=== PATIENT | female | born 1995 | race Caucasian/White ===

== ENCOUNTER 2016-11-07 22:13 | Emergency (ER) | payer OTHER ==
[2016-11-07 22:21] VITALS: BP 124/80; PULSE 106; RESP 18; TEMP 99; O2SAT 99
--- NOTE | 2016-11-07 22:51 | EDPHY ---
H & P Stated Complaint: dx strep 11/05 & rx amoxicillin; IV abx 11/06; increasing pain Time Seen by Provider: 11/07/16 22:38 HPI/ROS: HPI The patient presents with sore throat for the last 3 days that is getting progressively worse. The pain is moderate in severity, constant, sore in nature , more on the right-hand side. She does not have any neck stiffness, changes in her voice, neck pain. She has fever for the last several days, as high as 102 F. She was seen 2 days ago and had a positive rapid strep test, was given amoxicillin. She was seen yesterday at a [facility] and she was given some sort of IV antibiotic. She has been on Augmentin for the last 1 day. She has a history of recurrent pharyngitis as a child. REVIEW OF SYSTEMS Constitutional: See HPI Eyes: No discharge. ENT: See HPI Cardiovascular: No chest pain, no palpitations. Respiratory: No cough, no shortness of breath. Gastrointestinal: No abdominal pain, no vomiting. Genitourinary: No hematuria. Musculoskeletal: No back pain. Skin: No rashes. Neurological: No headache. PMHx: Healthy PHYSICAL General Appearance: Alert, no distress Eyes: Pupils equal and round no pallor or injection ENT, Mouth: Mucous membranes moist, posterior pharynx is erythematous with edema of the right tonsil with exudate, the tonsillar pillar appears normal, the uvula is midline Respiratory: There are no retractions, lungs are clear to auscultation Cardiovascular: Regular rate and rhythm Neurological: A&O, moves all extremities Skin: Warm and dry, no rashes Musculoskeletal: Neck is supple non tender Extremities: symmetrical, full range of motion Psychiatric: Patient is oriented X 3, there is no agitation Source: Patient Exam Limitations: No limitations - Personal History LMP (Females 10-55): 8-14 Days Ago Current Tetanus/Diphtheria Vaccine: Yes Current Tetanus Diphtheria and Acellular Pertussis (TDAP): Yes - Medical/Surgical History Hx Asthma: Yes Hx Chronic Respiratory Disease: No Hx Diabetes: No Hx Cardiac Disease: No Hx Renal Disease: No Hx Cirrhosis: No Hx Alcoholism: No Hx HIV/AIDS: No Hx Splenectomy or Spleen Trauma: No Other PMH: exercise induced asthma - Social History Smoking Status: Never smoked Constitutional: Initial Vital Signs Temperature (C) 37.2 C 11/07/16 22:15 Heart Rate 106 H 11/07/16 22:15 Respiratory Rate 18 11/07/16 22:15 Blood Pressure 124/80 H 11/07/16 22:15 O2 Sat (%) 99 11/07/16 22:15 O2 Delivery Mode Room Air Allergies/Adverse Reactions: No Known Allergies Allergy (Unverified 11/07/16 22:23) Home Medications: Medication Instructions Recorded Advil 11/07/16 Albuterol 11/07/16 Augmentin 11/07/16 Levonorgestrel 11/07/16 Tylenol 11/07/16 Medical Decision Making Differential Diagnosis: This is a 21-year-old healthy female who presents after being diagnosed with strep pharyngitis based on rapid strep test 2 days ago, on amoxicillin, then IV antibiotic, now Augmentin. She is continuing to have throat pain and fever. Her neck is supple and she is nontoxic appearing. Differential diagnosis includes strep pharyngitis, peritonsillar abscess, viral pharyngitis, less likely diphtheria. I feel the patient is suffering from a protracted course of strep pharyngitis though does not have any complications of this. I will give her a dose of Decadron and I have advised her to continue ibuprofen and Tylenol as well as Augmentin. I have given her the contact information for ENT and she can follow up if she needs to. Departure - Departure Disposition: Home, Routine, Self-Care Clinical Impression: Acute streptococcal pharyngitis Condition: Good Instructions: Pharyngitis (ED) Additional Instructions: Please make sure to drink plenty of fluids. You can take ibuprofen and Tylenol as needed for pain. I have given you the follow-up information for Ear Nose and Throat if your sore throat continues beyond the next 1-2 days. Referrals: Louis Adrian MD [Medical Doctor] - As per Instructions
[2016-11-07] MEDS ORDERED: DEXAMETHASONE 4 MG TAB PO ONE (22:59)
[2016-11-07] MEDS: DEXAMETHASONE 10 MG/ML VIAL PO ONE ×2 (23:14→23:15)
== END 2016-11-07 23:18 | disposition home or self-care (01) ==
DX: J02.0 Streptococcal pharyngitis (principal); J45.909 Unspecified asthma, uncomplicated